=== PATIENT | male | born 1940 | race Caucasian/White ===

== ENCOUNTER → 2017-01-01 | Outpatient (CLI) | payer OTHER, BC | LOC: CAT 08:31 | PROVIDERS: Specialist | DX: I86.4 Gastric varices (principal); I71.4 Abdominal aortic aneurysm, without rupture; R16.0 Hepatomegaly, not elsewhere classified ==

== ENCOUNTER → 2021-03-13 | Outpatient (CLI) | payer OTHER ==
[~2021-03-13] MED LIST: ASA81BEC PO; CO-ENZYME Q101 EACH PO; LISINOPRIL20 MG PO; NORVASC5 MG PO; ROSUVASTATIN CA40 MG PO; VITAMIN D350 MC3 PO
== END ==
LOC: LAB 06:41
PROVIDERS: ATTEND Student in an Organized Health Care Education/Training Program
DX: Z01.812 Encounter for preprocedural laboratory examination (principal); Z20.822 Contact with and (suspected) exposure to COVID-19

== ENCOUNTER → 2021-03-15 | Outpatient (CLI) | payer OTHER ==
[~2021-03-15] VITALS: Ht 182.9 cm; Wt 86.2 kg
--- NOTE | 2021-03-17 08:20 | P ---
[facility] [place] [address] PROCEDURE REPORT Name: ISAAC BARRERA Room #: REG [facility] Homar#: [id number] Admission: 03/15/21 Attend Phys: Levar Centeno Discharge: Date of : 40 Report #: [id number] THIS REPORT FOR: cc: Jesus Aguilera MD, Stanley P. MD McElhinney, Christian C. MD ~ cc: Jesus Aguilera MD DATE OF SERVICE: 03/15/2021 PROCEDURE PERFORMED: Colonoscopy with biopsies. HISTORY OF PRESENT ILLNESS: The patient is an 81-year-old male with a history of colon polyps, last colonoscopy was in 2017 in which adenomatous polyps were removed. He reports constipation and some mild right lower quadrant abdominal pain at times. No family history of colon cancer. DESCRIPTION OF PROCEDURE: The risks and benefits of the procedure were explained to the patient, those risks including but not limited to bleeding, perforation and the risk of sedation. He understood these risks and gave informed consent. Sedation was given using propofol per Anesthesia. Next, a digital rectal exam was initially performed, which was normal. Next, using a standard Olympus colonoscope, the scope was placed in the patient's anus and advanced under direct vision to the cecum. The overall prep was excellent. The cecum and ileocecal valve were normal in appearance. In the ascending colon, a 3 mm sessile polyp was noted. This was removed with a cold forceps, otherwise normal. The transverse, descending and sigmoid colon were all normal. The rectal mucosa was normal. On retroflexion, small nonbleeding internal hemorrhoids were noted. The scope was then withdrawn and the procedure terminated. The patient tolerated the procedure well. IMPRESSION: 1. Small colonic polyp. 2. Small internal hemorrhoids. 3. Otherwise, normal colonoscopy. RECOMMENDATIONS: 1. Await biopsy results. 2. Observe at this point from a screening standpoint. 3. We discussed trying to increase daily MiraLax for constipation. If this is not helpful, then consider Linzess trial in the future. [address] [address] PROCEDURE REPORT Name: ISAAC BARRERA Room #: NIRMALA Graf#: [id number] Admission: 03/15/21 Attend Phys: Levar Centeno Discharge: Date of : 40 Report #: [id number] Thank you for allowing me to participate in his care. <ELECTRONICALLY SIGNED> By: Levar Bosch MD 03/17/21 0820 [id number] Levar Bosch MD /nt
== END | disposition home or self-care (01) ==
LOC: GI
PROVIDERS: ATTEND Specialist
DX: K59.00 Constipation, unspecified (principal); R10.31 Right lower quadrant pain; K63.5 Polyp of colon; K64.8 Other hemorrhoids; I10 Essential (primary) hypertension; E78.5 Hyperlipidemia, unspecified; Z98.890 Other specified postprocedural states; Z79.899 Other long term (current) drug therapy; Z86.010 Personal history of colon polyps; Z87.442 Personal history of urinary calculi; Z86.73 Personal history of transient ischemic attack (TIA), and cerebral infarction without residual deficits
CPT/HCPCS: 62110; 62900